=== PATIENT | female | born 1995 | race Caucasian/White ===

== ENCOUNTER → 2019-10-09 | Outpatient (REF) | payer OTHER ==
[~2019-10-09] MED LIST: ANUS2.5C2; DOCU5LIQ PO; FLAG500T OR; IBUP80TA PO; MAPA500T17 PO; MILK10SU PO; PROT1TAB2 OR; birth control pill OR
[2019-10-09 15:27] LABS: CHLAMYDIA DNA AMPLIFICATION NEGATIVE (NEGATIVE); GC DNA AMPLIFICATION NEGATIVE (NEGATIVE)
== END ==
LOC: M SFHCWAGY 13:00
PROVIDERS: ATTEND Advanced Practice Midwife
DX: Z11.3 Encounter for screening for infections with a predominantly sexual mode of transmission (principal)

== ENCOUNTER → 2021-06-05 | Outpatient (CLI) | payer OTHER | LOC: M RAD 12:02 | PROVIDERS: ATTEND Physician Assistant Medical | DX: Z53.20 Procedure and treatment not carried out because of patient's decision for unspecified reasons (principal) ==

== ENCOUNTER → 2021-06-05 | Outpatient (REF) | payer OTHER ==
[2021-06-05 17:43] LABS: AMORPHOUS SEDIMENT SMALL (NEGATIVE); APPEARANCE, URINE CLOUDY (CLEAR); BACTERIA, URINE AUTO 1+ (NEGATIVE); BILIRUBIN, URINE AUTO 2+ (NEGATIVE); BLOOD, URINE BLOOD NEGATIVE (NEGATIVE); COLOR, URINE AMBER (YELLOW); GLUCOSE, URINE (UA) AUTO NEGATIVE (NEGATIVE); KETONE, URINE AUTO NEGATIVE (NEGATIVE); LEUKOCYTE ESTERASE, URINE AUTO NEGATIVE (NEGATIVE); MUCUS, URINE LARGE (NEGATIVE); NITRITE, URINE AUTO NEGATIVE (NEGATIVE); PROTEIN, URINE AUTO 2+ mg/dL (NEGATIVE); RBC, URINE AUTO 9 /HPF (0-3); SQUAMOUS EPITHELIAL CELL UR AU 19 /HPF (0-6); WBC, URINE AUTO 0 /HPF (0-3)
== END ==
LOC: M LAB REF 16:17
PROVIDERS: ATTEND Physician Assistant Medical
DX: R10.9 Unspecified abdominal pain (principal)

== ENCOUNTER → 2021-06-08 | Outpatient (CLI) | payer OTHER ==
--- NOTE | 2021-06-08 09:51 | REP ---
INDICATION: PELVIC PAIN ? OVARION CYST. COMPARISON: CT A/P 07/11/2013. TECHNIQUE: Transabdominal endovaginal probe images of the pelvis. FINDINGS: Bladder is partially filled measuring 6.1 x 3.2 x 2.4 cm. Uterus is seen anteverted and measures 8.5 x 3.4 x 5.3 cm. The mid atrial stripe shows a thickness of 10.3 mm with no fluid in the endometrial cavity or endocervical canal. Left side of the uterine body shows an ovoid hypoechoic and heterogeneous focus, 1.9 x 1.9 x 1.6 cm, suggesting a fibroid. There was no fluid in the cul-de-sac. The right ovary is 3.1 x 2.8 x 2.2 cm. The has normal Doppler tracing with resistive index 0.49 and normal color flow no mass, cyst or adjacent free fluid. The left ovary measures 4.5 x 3.2 x 3.3 cm it shows the Doppler tracing with resistive index is 0.71 some color flow. However within it is a 3.1 x 2.4 x 2.3 cm complex and probably hemorrhagic cyst. There are other subcentimeter follicles in that ovary. No adjacent free fluid. No solid mass IMPRESSION: 1. Uterus anteverted with normal endometrial stripe without fluid in the endometrial cavity. Appears to be a posterior left-sided uterine fibroid 1.9 x 1.9 x 1.6 cm. No fluid in the cul-de-sac. 2. Right ovary unremarkable with normal size and Doppler tracing and with no mass or adjacent fluid. 3. Left ovary larger and has a 3.1 x 2.4 x 2.3 cm complex, probably hemorrhagic cyst and other subcentimeter follicles. Normal Doppler tracing and no adjacent free fluid. <Electronically signed by Lawson Singh > 06/08/21 [id number]
== END ==
LOC: M RAD 09:05
PROVIDERS: ATTEND Physician Assistant Medical
DX: R10.2 Pelvic and perineal pain (principal); N85.4 Malposition of uterus

== ENCOUNTER → 2021-06-20 | Outpatient (CLI) | payer OTHER ==
--- NOTE | 2021-06-20 16:52 | REP ---
INDICATION: MASTALGIA, BREAST ASYMMETRY RIGHT BREAST. COMPARISON: None TECHNIQUE: Real-time sonographic evaluation of right breast performed. FINDINGS: Ultrasound right breast performed between 9 and 11 o'clock in the region of pain and lumpiness. Dense fibroglandular tissue is present with no discrete cystic or solid nodule. IMPRESSION: BIRADS/ACR category 2, benign. Diffuse heterogeneous fibroglandular tissue is present in the right breast between 9 and 11 o'clock at the site of pain and lumpiness. No discrete cystic or solid nodule is seen sonographically. RECOMMENDATION: Recommend clinical correlation and follow-up. A negative ultrasound should not deter biopsy if there is a clinically suspicious palpable mass present. <Electronically signed by Rikki Nagy > 06/20/21 [id number]
== END ==
LOC: M WHC 13:22
PROVIDERS: ATTEND Advanced Practice Midwife
DX: N64.4 Mastodynia (principal); N64.89 Other specified disorders of breast; N63.11 Unspecified lump in the right breast, upper outer quadrant

== ENCOUNTER → 2022-10-09 | Outpatient (CLI) | payer OTHER | LOC: M WHC 07:55 | PROVIDERS: ATTEND Registered Nurse | DX: N63.10 Unspecified lump in the right breast, unspecified quadrant (principal) ==

== ENCOUNTER → 2023-11-13 | Outpatient (CLI) | payer OTHER | LOC: M WHC 09:49 | PROVIDERS: ATTEND Registered Nurse | DX: N64.4 Mastodynia (principal); R92.30 Dense breasts, unspecified; Z80.3 Family history of malignant neoplasm of breast ==

== ENCOUNTER → 2024-07-13 | Outpatient (CLI) | payer OTHER | LOC: M WUC 08:19 | PROVIDERS: ATTEND Student in an Organized Health Care Education/Training Program | DX: M79.674 Pain in right toe(s) (principal) ==

== ENCOUNTER → 2025-05-05 | Outpatient (REF) | payer OTHER | LOC: M PLALAB 11:08 | PROVIDERS: ATTEND Nurse Practitioner Family | DX: Z12.4 Encounter for screening for malignant neoplasm of cervix (principal) ==

== ENCOUNTER → 2025-05-19 | Outpatient (CLI) | payer OTHER | LOC: M PLALAB 11:05 | PROVIDERS: ATTEND Surgery | DX: Z80.3 Family history of malignant neoplasm of breast (principal); Z91.89 Other specified personal risk factors, not elsewhere classified ==

== ENCOUNTER → 2025-05-25 | Outpatient (REF) | payer OTHER | LOC: M PLALAB 11:53 | PROVIDERS: ATTEND Physician Assistant | DX: R87.610 Atypical squamous cells of undetermined significance on cytologic smear of cervix (ASC-US) (principal) ==